=== PATIENT | female | born 1985 | race Caucasian/White ===

== ENCOUNTER 2019-06-26 09:21 | Emergency (ER) | payer OTHER ==
[2019-06-26 09:44] VITALS: BP 117/92
--- NOTE | 2019-06-26 09:56 | ED Physician Documentation ---
History of Present Illness - Stated complaint Stated Complaint: COUGH/EAR PX/SORE THROAT - Chief complaint Chief Complaint: Heent - Additonal information Additional information: This is a 34-year-old female with a history of hypothyroidism who presents with a sore throat, nasal congestion, mild cough, and a feeling of ear fullness for the last 48 hours. Her son has been sick and she developed similar symptoms to him over the last several days. She denies any shortness of breath or chest pain. She has not had any drainage from her ear. The discomfort is mild to moderate, is worse [place]. Review of Systems Constitutional: denies: Fever Ears: reports: Other (Feeling of fullness) Nose: reports: Congestion Respiratory: denies: Dyspnea GI: denies: Abdominal Pain Skin: denies: Rash PD PAST MEDICAL HISTORY - Past Medical History Endocrine/Autoimmune: HyPOthyroidism - Present Medications Home Medications: Ambulatory Orders Medication Instructions Recorded Confirmed Amoxicillin 500 mg PO BID #14 capsule 06/26/19 Levothyroxine [Synthroid] 112 mcg PO QDAC 06/26/19 06/26/19 - Allergies Allergies/Adverse Reactions: Allergies Allergy/AdvReac Type Severity Reaction Status Date / Time No Known Drug Allergies Allergy Verified 06/26/19 09:39 - Living Situation Living Arrangement: reports: At home - Social History Smoking Status: Never smoker PD ED PE NORMAL - General General: Alert and oriented X 3, No acute distress - HEENT HEENT: Other (There is a serous effusion on the right TM with significant injection/erythema. Smaller seroud effusion in the left TM. External auditory canals are normal in appearance. Posterior pharynx erythematous, no exudate. Uvula midline.) - Neck Neck: Supple, no meningeal sign - Cardiac Cardiac: RRR - Respiratory Respiratory: No respiratory distress, Clear bilaterally - Abdomen Abdomen: Soft, Non distended - Neuro Neuro: Alert and oriented X 3 - Psych Psych: Normal mood, Normal affect Results - Vitals Vitals: Vital Signs - 24 hr 06/26/19 09:39 Temperature 36.8 C Heart Rate 89 Respiratory 16 Rate Blood Pressure 117/92 H O2 Saturation 100 PD MEDICAL DECISION MAKING - ED course ED course: Patient is very well-appearing on exam, no fever, she does have upper respiratory symptoms and bilateral serous otitis. I discussed with her that this is likely due to eustachian tube dysfunction due to a viral infection at this point, and I recommended decongestants and supportive care for the next 48 hours. If she is having worsening symptoms despite supportive care she may start amoxicillin for this. She was given a dose of amoxicillin for sore throat. I reviewed return precautions and PCP follow-up and patient was discharged home Departure - Departure Disposition: 01 Home, Self Care Clinical Impression: Serous otitis media Qualifiers: Chronicity: acute Laterality: bilateral Recurrence: non-recurrent Qualified Code(s): H65.03 - Acute serous otitis media, bilateral Condition: Good Instructions: ED Otitis Media Serous Adult Follow-Up: Your,PCP [Other] Prescriptions: Amoxicillin 500 mg PO BID #14 capsule Comments: You appear to have an upper respiratory infection which is causing some fluid behind your ears. I think this will likely get better with decongestants such as Sudafed or antihistamine such as loratadine or Benadryl, but if your symptoms are worsening or if you are having fever and ear pain despite treatment with decongestants for the next 48 hours, you may start the amoxicillin. Please follow-up with your primary care provider if your symptoms are persisting. If you are having worsening or new concerning symptoms return to the emergency department Discharge Date/Time: 06/26/19 10:22
[2019-06-26] MEDS ORDERED: CHERRY SYRUP 10 ML UDC PO ONE (10:13)
[2019-06-26] MEDS ORDERED: DEXAMETHASONE 10 MG/ML VIAL PO STA (10:13)
== END 2019-06-26 10:22 | disposition home or self-care (01) ==
LOC: ED 09:21
DX: H65.03 Acute serous otitis media, bilateral (principal); E03.9 Hypothyroidism, unspecified
CPT/HCPCS: 99282; 99284; A9270

== ENCOUNTER 2019-06-27 08:59 | Emergency (ER) | payer OTHER ==
[2019-06-27] MEDS ORDERED: BENZONATATE 100 MG CAPSULE PO STA ×2 (09:25→10:01)
[2019-06-27] MEDS ORDERED: ACETAMINOPHEN 325 MG TABLET PO STA (09:25)
--- NOTE | 2019-06-27 09:27 | ED Physician Documentation ---
History of Present Illness - Stated complaint Stated Complaint: cough/congestion - Chief complaint Chief Complaint: Resp - Additonal information Additional information: This is a 34-year-old female who I know from her visit yesterday who presents with cough and congestion. Yesterday she presented with some upper respiratory symptoms and ear discomfort, she had a serous otitis, she was treated with supportive care and decongestants, she states that her ears are she feeling better today but that she has had an increased cough which is both of a small amount of white sputum, no blood, and her breathing feels heavy to her. She denies specific chest pain. No wheezing. No history of lung problems, no history of cardiac problems. She Has not taken any medications this morning Review of Systems Constitutional: reports: Fever Nose: reports: Rhinorrhea / runny nose Respiratory: reports: Cough. denies: Hemoptysis GI: denies: Vomiting PD PAST MEDICAL HISTORY - Past Medical History Past Medical History: Yes Endocrine/Autoimmune: HyPOthyroidism - Present Medications Home Medications: Ambulatory Orders Medication Instructions Recorded Confirmed Amoxicillin 500 mg PO BID #14 capsule 06/26/19 Levothyroxine [Synthroid] 112 mcg PO QDAC 06/26/19 06/26/19 Benzonatate [Tessalon Perle] 100 - 200 mg PO TID PRN #30 capsule 06/27/19 - Allergies Allergies/Adverse Reactions: Allergies Allergy/AdvReac Type Severity Reaction Status Date / Time No Known Drug Allergies Allergy Verified 06/27/19 09:11 - Social History Does the pt smoke?: No Smoking Status: Never smoker PD ED PE NORMAL - Vitals Vital signs reviewed: Yes - General General: Alert and oriented X 3, No acute distress - HEENT HEENT: PERRL, Other (Cerumen in the left ear, sliver of the TM is visible and appears normal. Right tympanic membrane is injected but flat with serous effusion) - Neck Neck: Supple, no meningeal sign - Cardiac Cardiac: RRR, No murmur - Respiratory Respiratory: No respiratory distress, Clear bilaterally - Abdomen Abdomen: Soft, Non tender, Non distended - Derm Derm: Warm and dry - Neuro Neuro: Alert and oriented X 3 - Psych Psych: Normal mood, Normal affect Results - Vitals Vitals: Vital Signs - 24 hr 06/27/19 06/27/19 09:08 10:22 Temperature 36.1 C L Heart Rate 76 78 Respiratory 20 16 Rate Blood Pressure 118/81 H 125/79 O2 Saturation 98 100 Oxygen O2 Source Room air - Rads (name of study) CXR Radiology: Other (Central bronchial wall thickening consistent with reactive airway disease or bronchitis, no pneumonia) PD MEDICAL DECISION MAKING - ED course ED course: Patient is well-appearing on exam. She is afebrile, with normal and oxygen saturation, and normal heart rate. Lungs are clear. X-ray shows findings compatible with a viral bronchitis, no pneumonia or focal consolidation. She was given Tylenol as well as Tessalon Perles. I discussed this result with her, she is feeling well and she continues to have unremarkable vital signs on my repeat examination. I discussed the typical duration of viral illnesses, supportive care, and I prescribed Tessalon Perles. She has no risk factors or symptoms that raise my concern for ACS or pulmonary embolism. I reviewed return precautions including any difficulty breathing, hemoptysis, or other concerning symptoms. Her ears are feeling better today, she did receive a watch and wait antibiotic yesterday but I told her that I think she should hold off on taking it given her improvement in that regard. Her entire syndrome is sounding very typical for viral upper respiratory infection. Departure - Departure Disposition: 01 Home, Self Care Clinical Impression: Viral respiratory illness Condition: Good Instructions: ED Viral Syndrome Prescriptions: Benzonatate [Tessalon Perle] 100 - 200 mg PO TID PRN #30 capsule PRN Reason: Cough Comments: Your x-ray does not show signs of pneumonia, this is likely a viral bronchitis. These viral illnesses typically last 7 to 10 days. You may use the Tessalon Perles for cough, I also recommend ibuprofen 600 mg every 6 hours and 50 mg every 6 hours as needed for fever or discomfort. If you are developing worsening shortness of breath, blood in your sputum, chest pain, or other concerning symptoms return to the emergency department Discharge Date/Time: 06/27/19 10:23
--- NOTE | 2019-06-27 09:43 | XRAY Report ---
Reason: cough/chest congestion Procedure Date: 06/27/2019 Accession Number: [id number] / [id number] Procedure: XR - Chest 2 View X-Ray CPT Code: 75438 Final Report FULL RESULT: EXAM: CHEST RADIOGRAPHY EXAM DATE: 06/27/2019 09:38 AM. CLINICAL HISTORY: Cough/chest congestion. COMPARISON: None. TECHNIQUE: 2 views. FINDINGS: Lungs/Pleura: Bilateral central bronchial wall thickening could reflect underlying reactive airways or bronchitis. No superimposed focal airspace consolidation. No pleural effusion or pneumothorax. Mediastinum: Heart and mediastinal contours are unremarkable. Other: None. IMPRESSION: 1. Bilateral central bronchial wall thickening could reflect underlying reactive airways or bronchitis. No pneumonia. RADIA
[2019-06-27 10:23] VITALS: BP 125/79
== END 2019-06-27 10:23 | disposition home or self-care (01) ==
LOC: ED 08:59
DX: J06.9 Acute upper respiratory infection, unspecified (principal); H61.22 Impacted cerumen, left ear
CPT/HCPCS: 71046; 99283; 99284; A9270

== ENCOUNTER 2024-01-25 09:50 | Outpatient (CLI) | payer OTHER ==
[2024-01-25 12:28] LABS: THYROID STIMULATING HORMONE 3.62 uIU/mL (0.34-5.60)
== END 2024-01-25 09:51 | disposition home or self-care (01) ==
LOC: LAB.N 09:50
PROVIDERS: ATTEND Nurse Practitioner Family
DX: Z00.00 Encounter for general adult medical examination without abnormal findings (principal)
CPT/HCPCS: 36415; 84443

== ENCOUNTER 2024-02-21 10:10 | Outpatient (CLI) | payer OTHER ==
[2024-02-21 18:25] LABS: BASOPHILS % (AUTO) 0.6 %; EOSINOPHILS # (AUTO) 0.1 10^3/uL (0.0-0.7); EOSINOPHILS % (AUTO) 2.1 %; HCT - HEMATOCRIT 38.3 % (37.0-47.0); LYMPHOCYTES % (AUTO) 37.9 %; MEAN CORPUSCULAR HEMOGLOBIN 27.3 pg (27.0-31.0); MEAN CORPUSCULAR HGB CONC 31.3 g/dL (32.0-36.0); MEAN PLATELET VOLUME 11.7 fL (7.9-10.8); MONOCYTES # (AUTO) 0.5 10^3/uL (0.0-1.0); MONOCYTES % (AUTO) 9.8 %; NEUTROPHILS # (AUTO) 2.6 10^3/uL (1.5-6.6); NEUTROPHILS % (AUTO) 49.4 %; PLT - PLATELET COUNT 226 10^3/uL (130-450); RED CELL DISTRIBUTION WIDTH 14.5 % (12.0-15.0); WHITE BLOOD COUNT 5.3 x10^3/uL (4.8-10.8)
[2024-02-21 18:39] LABS: ALBUMIN 4.1 g/dL (3.2-5.5); ALBUMIN/GLOBULIN RATIO 1.3 (1.0-2.2); ALKALINE PHOSPHATASE 54 IU/L (42-121); ALT ALANINE AMINOTRANSFERASE 14 IU/L (10-60); AST ASPARTATE AMINOTRANSFERASE 13 IU/L (10-42); BILIRUBIN,TOTAL 0.4 mg/dL (0.2-1.0); BUN - BLOOD UREA NITROGEN 13 mg/dL (6-20); CALCIUM 9.1 mg/dL (8.5-10.3); CARBON DIOXIDE - CO2 27 mmol/L (21-32); CHLORIDE 108 mmol/L (101-111); CHOL/HDL RATIO 2.8 (<4.4); CHOLESTEROL 170 mg/dL; CREATININE 0.8 mg/dL (0.6-1.3); GFR - MDRD 81 (>89); GLUCOSE 89 mg/dL (74-104); HDL CHOLESTEROL 61 mg/dL; LDL CHOLESTEROL,CALCULATED 99 mg/dL; LDL/HDL RATIO 1.6 (<4.4); POTASSIUM 4.1 mmol/L (3.5-4.5); SODIUM 139 mmol/L (135-145); TOTAL PROTEIN 7.2 g/dL (6.4-8.9); TRIGLYCERIDES 50 mg/dL; VLDL CHOLESTEROL 10 mg/dL
== END 2024-02-21 10:11 | disposition home or self-care (01) ==
LOC: LAB.N 10:10
PROVIDERS: ATTEND Nurse Practitioner Family
DX: Z00.00 Encounter for general adult medical examination without abnormal findings (principal)
CPT/HCPCS: 36415; 80053; 80061; 83721; 85025

== ENCOUNTER 2024-03-02 15:53 | Outpatient (CLI) | payer OTHER ==
[2024-03-03 02:08] LABS: HEPATITIS B SURFACE AB QUANT 85.1 mIU/mL (Immunity>10)
[2024-03-03 12:09] LABS: MUMPS ANTIBODIES IGG 29.6 AU/mL (Immune >10.9)
== END 2024-03-02 15:54 | disposition home or self-care (01) ==
LOC: LAB.N 15:53
PROVIDERS: ATTEND Nurse Practitioner Family
DX: Z01.84 Encounter for antibody response examination (principal); Z86.19 Personal history of other infectious and parasitic diseases; Z11.1 Encounter for screening for respiratory tuberculosis
CPT/HCPCS: 36415; 81599; 86317; 86735; 86762; 86765; 86787

== ENCOUNTER 2024-03-28 09:11 | Emergency (ER) | payer OTHER ==
--- NOTE | 2024-03-28 09:53 | ED Physician Documentation ---
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, Breast implants - Present Medications Home Medications: Ambulatory Orders Medication Instructions Recorded Confirmed Ashw/Magn/Phel/Banab/Mar/Thean 1 each PO DAILY 03/28/24 03/28/24 [Cortisolv Capsule] Levothyroxine [Synthroid] 125 mcg PO QDAC 03/28/24 03/28/24 Lidocaine 4 % TP Q12H PRN #15 patch 03/28/24 Magnesium Oxide 400 mg PO DAILY PM 03/28/24 03/28/24 Meloxicam [Mobic] 7.5 mg PO BID 10 Days #20 tablet 03/28/24 methocarbamoL [Robaxin] 500 mg PO Q8H PRN #20 tablet 03/28/24 - Allergies Allergies/Adverse Reactions: Allergies Allergy/AdvReac Type Severity Reaction Status Date / Time No Known Drug Allergies Allergy Verified 03/28/24 09:16 - Social History Does the pt smoke?: No Smoking Status: Former smoker Does the pt drink ETOH?: No Does the pt have substance abuse?: No - Immunizations Immunizations are current?: Yes - POLST Patient has POLST: No Results - Vitals Vitals: Oxygen O2 Source Room air - EKG (time done) 09:28 EKG releavant findings:: EKG personally interpreted by author of this note. Relevant findings are: Rate: Rate (enter#) (72) Rhythm: NSR [place]: Normal Intervals: Normal [place] QRS: Normal Ischemia: Normal ST segments. No: ST elevation c/w ischemia, ST depression - Labs Labs: Laboratory Tests 03/28/24 03/28/24 03/28/24 10:45 10:45 10:45 WBC 5.4 RBC 4.75 Hgb 12.6 Hct 39.2 MCV 82.5 MCH 26.5 L MCHC 32.1 RDW 14.1 Plt Count 215 MPV 11.1 H Neut # (Auto) 2.8 Lymph # (Auto) 1.9 [place] # (Auto) 0.6 Eos # (Auto) 0.0 Baso # (Auto) 0.0 Absolute Nucleated RBC 0.00 Nucleated RBC % 0.0 D-Dimer 252.0 Sodium 137 Potassium 3.9 Chloride 108 Carbon Dioxide 23 Anion Gap 6.0 BUN 16 Creatinine 0.7 Estimated GFR (MDRD) 94 Glucose 92 Calcium 9.3 Total Bilirubin 0.3 AST 13 ALT 11 Alkaline Phosphatase 49 Troponin I High Sens < 2.3 L Total Protein 7.0 Albumin 4.3 Globulin 2.7 Albumin/Globulin Ratio 1.6 Lipase 27 - Rads (name of study) chest xray Relevant Findings:: Prelim report reviewed, EMP independent interpretation of test (normal) PD Medical Decision Making - ED course Complexity details: reviewed results (The pain initiailly scapular to shoulder but then developed tingling in fingers at times and feeling of coolness from shoulder to arm. Nonpleuritic pain and negative PERC risk factors. But she says FH of vascular problems. Could consider vascular. Labs neg trop and CXR, ECG. Neg d-dimer.), considered differential (has tender areas in suprascapular area and lateral trapezius area. Not tender n=midline cervical nor thoracic. Not tender in shoulder joint itself nor AC/bursal area. Pain is not exertional nor pleuritic and no associated dyspnea, fevers, cough, lightheaded, syncope. ), d/w patient Reviewed Lab Results: with low probability clinically of cardiovascular or pulmonary process and neg tests of CXR, ECG, trop, chemistries, and d-dimer, I feel there is not indication/value in advanced imaging or testing (CT, stress testing, Ziopatch, etc) as zero pretest probability. It does sound myofascial in shoulder and presume some nerve irritation through the area with some element of rotator cuff tendonitis given the pain from suprascapular to upper arm, worse with lifting/etc. No particular injury but has 2 year old at home so getting heavy enough for repeitive use strain with lifting child/etc Departure - Departure Disposition: 01 Home, Self Care Clinical Impression: Pain of left scapula, Left shoulder tendonitis Condition: Stable Record reviewed to determine appropriate education?: Yes Instructions: ED Sprain Shoulder Follow-Up: Isabella Hines ARNP [Primary Care Provider] - Prescriptions: Lidocaine 4 % TP Q12H PRN #15 patch PRN Reason: Pain 1-4 Meloxicam [Mobic] 7.5 mg PO BID 10 Days #20 tablet methocarbamoL [Robaxin] 500 mg PO Q8H PRN #20 tablet PRN Reason: Spasms Comments: Your chest x-ray, EKG, blood tests are normal without any signs of obvious heart lung or vascular causes (such as blood clots). The symptoms sound likely to be some irritation or inflammation around the muscles of the shoulder girdle and upper back causing irritation of the nerves to the arm and hand. I presume some level of muscle spasms or such causing the symptoms up and down the back, but again no signs of more serious/internal cause. At this point we treated as musculoskeletal type pain with some irritation of the nerves running through the area. I would suggest regular use of some anti-inflammatories as well as consideration of muscle relaxant (mild version that should not cause dizzy lightheadedness or notable sleepiness), as well as topical treatments such as lidocaine patches, massage or chiropractic. You could follow-up with your primary care as well to see if they suggest physical therapy if this is not improving well over the next week or more. I would anticipate however it improving over several days to week. Add Tylenol every 4-6 hours if needed for pain as well. I sent your prescriptions to your preferred pharmacy. Forms: PCP List Discharge Date/Time: 03/28/24 11:42
[2024-03-28 10:55] LABS: BASOPHILS % (AUTO) 0.4 %; EOSINOPHILS % (AUTO) 0.7 %; HCT - HEMATOCRIT 39.2 % (37.0-47.0); HGB - HEMOGLOBIN 12.6 g/dL (12.0-16.0); LYMPHOCYTES # (AUTO) 1.9 10^3/uL (1.5-3.5); LYMPHOCYTES % (AUTO) 35.4 %; MEAN CORPUSCULAR HEMOGLOBIN 26.5 pg (27.0-31.0); MEAN CORPUSCULAR HGB CONC 32.1 g/dL (32.0-36.0); MEAN CORPUSCULAR VOLUME 82.5 fL (81.0-99.0); MEAN PLATELET VOLUME 11.1 fL (7.9-10.8); MONOCYTES # (AUTO) 0.6 10^3/uL (0.0-1.0); MONOCYTES % (AUTO) 11.4 %; NEUTROPHILS # (AUTO) 2.8 10^3/uL (1.5-6.6); NEUTROPHILS % (AUTO) 52.1 %; PLT - PLATELET COUNT 215 10^3/uL (130-450); RED BLOOD COUNT 4.75 10^6/uL (4.20-5.40); RED CELL DISTRIBUTION WIDTH 14.1 % (12.0-15.0); WHITE BLOOD COUNT 5.4 x10^3/uL (4.8-10.8)
[2024-03-28 11:15] LABS: TROPONIN I HIGH SENSITIVITY < 2.3 ng/L (2.3-14.8)
[2024-03-28 11:16] LABS: ALBUMIN 4.3 g/dL (3.2-5.5); ALBUMIN/GLOBULIN RATIO 1.6 (1.0-2.2); ALKALINE PHOSPHATASE 49 IU/L (42-121); ALT ALANINE AMINOTRANSFERASE 11 IU/L (10-60); AST ASPARTATE AMINOTRANSFERASE 13 IU/L (10-42); BILIRUBIN,TOTAL 0.3 mg/dL (0.2-1.0); BUN - BLOOD UREA NITROGEN 16 mg/dL (6-20); CALCIUM 9.3 mg/dL (8.5-10.3); CARBON DIOXIDE - CO2 23 mmol/L (21-32); CHLORIDE 108 mmol/L (101-111); CREATININE 0.7 mg/dL (0.6-1.3); GFR - MDRD 94 (>89); GLUCOSE 92 mg/dL (74-104); LIPASE 27 U/L (11-82); POTASSIUM 3.9 mmol/L (3.5-4.5); SODIUM 137 mmol/L (135-145)
--- NOTE | 2024-03-28 11:39 | XRAY Report ---
PROCEDURE: Chest 1V INDICATIONS: left shoulder/scapular to chest pain TECHNIQUE: One view of the chest was acquired. COMPARISON: 06/27/2019. FINDINGS: Surgical changes and devices: None. Lungs and pleura: No pleural effusions or pneumothorax. Lungs are clear. Mediastinum: Mediastinal contours appear normal. Heart size is normal. Bones and chest wall: No suspicious bony lesions. Overlying soft tissues appear unremarkable. IMPRESSION: No acute cardiopulmonary process. Reviewed by: Chapo Crow MD on 03/28/2024 11:37 AM PDT Approved by: Chapo Crow MD on 03/28/2024 11:37 AM PDT Station ID: [id number]
[2024-03-28 11:42] VITALS: BP 98/71; O2SAT 99
== END 2024-03-28 11:42 | disposition home or self-care (01) ==
LOC: ED 09:11
DX: M75.92 Shoulder lesion, unspecified, left shoulder (principal); Z87.891 Personal history of nicotine dependence
CPT/HCPCS: 36415; 80053; 83690; 84484; 85025; 85379; 93005; 99283; 99284